=== PATIENT | male | born 1990 | race Two or more races ===

== ENCOUNTER 2025-03-16 11:22 | Emergency (ER) | payer SELFPAY ==
[~2025-03-16] VITALS: Ht 185.4 cm; Wt 154.2 kg
[2025-03-16 11:35] VITALS: TEMP 98.3
[2025-03-16 12:17] LABS: PLATELET COUNT (AUTO) 237 K/uL (150-450); RED BLOOD CELL COUNT(AUTO) 5.43 MIL/uL (4.5-6.0); RED CELL DISTRIBUTION WIDTH 13.5 % (11.5-15.0); WHITE BLOOD COUNT (AUTO) 6.1 K/uL (4.3-11.0)
[2025-03-16 12:21] LABS: CALCIUM, SERUM 8.6 mg/dL (8.5-10.1); CREATININE 0.8 mg/dL (0.6-1.3); SODIUM SERUM 141 mmol/L (136-145); UREA NITROGEN, BLOOD 14 mg/dL (7-18)
[2025-03-16 12:38] LABS: ASPARTATE AMINOTRANSFERASE 25 U/L (15-37); NT-PRO BNP 11 pg/mL (0-125); TOTAL PROTEIN, SERUM 8.2 g/dL (6.4-8.2)
[2025-03-16 13:19] VITALS: BP 126/80; O2SAT 98
== END 2025-03-16 13:19 | disposition home or self-care (01) ==
LOC: ER 11:35
DX: R07.89 Other chest pain (principal); R06.02 Shortness of breath
CPT/HCPCS: 36415; 71045-TC; 80048-TC; 80076-TC; 83880; 84484-TC; 85025-TC